=== PATIENT | male | born 1970 | race Asian ===

== ENCOUNTER 2018-01-22 06:01 | Observation (INO) | payer OTHER ==
[2018-01-22] VITALS (13 sets, daily range): BP systolic 105–136; BP diastolic 64–85
[~2018-01-22] VITALS: Ht 180.3 cm; Wt 86.2 kg
[~2018-01-22 06:01] MED LIST: Chloraseptic Spray 20mL Bottle ORAL PRN; Dexamethasone 20mg/5ml IVP ONE; HYDROcodone/Acetamin 10/325 tab ORAL PRN; HYDROmorphone 1mg/ml Carpuject SUBQ PRN; Morphine Sulfate 4mg/ml Inj (IV/IM USE ONLY) IM PRN; ceFAZolin sod 1 GM in NS 55 ML IVPB ONE
[2018-01-22] MEDS ORDERED: Zemuron 50mg/5ml Inj IV ONE (06:10)
[2018-01-22] MEDS ORDERED: LR 1000ml 1,000 ML IVLG SCH (06:24)
--- NOTE | 2018-01-22 06:25 | Anethesia Preoperative Eval ---
Anesthesia Pre-op PMH/ROS General Date of Evaluation: Jan 22, 2018 Time of Evaluation: 07:01 Anesthesiologist: Reji ASA Score: ASA 1 Mallampati Score Class I : Soft palate, uvula, fauces, pillars visible Class II: Soft palate, uvula, fauces visible Class III: Soft palate, base of uvula visible Class IV: Only hard plate visible Mallampati Classification: Class I Surgeon: Michaela Diagnosis: Neck Pain Surgical Procedure: ACDF C4-5,C5-6 Family History: no anesthesia problems Allergies: Uncoded Allergies: NKDA (Adverse Reaction, Unknown, 01/22/18) Medications: see eMAR Patient NPO?: Yes Past Medical History Gastrointestinal/Genitourinary: Reports: GERD Neurologic/Psychiatric: Reports: depression/anxiety Anesthesia Pre-op Phys. Exam Physician Exam Vital Signs Date Time Temp Pulse Resp B/P (MAP) Pulse Ox O2 Delivery O2 Flow Rate FiO2 01/22/18 06:53 98.1 82 18 105/64 (78) 95 01/22/18 06:56 Room Air Constitutional: NAD Neurologic: CN 2-12 intact Cardiovascular: RRR Respiratory: CTA Gastrointestinal: S/NT/ND Airway Exam Mallampati Score: Class I MO: full ROM: limited Teeth: intact Anesthesia Pre-op A/P Risk Assessment & Plan Assessment: ASA 1 Plan: GA, SED, GlideScope Go Status Change Before Surgery: No Pre-Antibiotics Dru Grams Ancef IV Given Within 1 Hr of Incision: Yes Time Given: 07:16 Yoseph Mendoza MD Jan 22, 2018 06:25
[2018-01-22] MEDS ORDERED: Atropine Sulfate 0.4mg/ml inj IVP PRN (06:30)
[2018-01-22] MEDS ORDERED: Meperidine 50mg/ml Inj(FOR RIGORS ONLY) IVP PRN (06:30)
[2018-01-22] MEDS ORDERED: Norco 5mg/325mg tab ORAL PRN (06:30)
[2018-01-22] MEDS ORDERED: Ketorolac 30mg Inj IV PRN ×2 (06:30)
[2018-01-22] MEDS ORDERED: Midazolam 2mg/2ml Inj IVP PRN (06:30)
[2018-01-22] MEDS ORDERED: LORazepam Inj 2mg/ml 1ml IV PRN (06:30)
[2018-01-22] MEDS ORDERED: fentaNYL 100 mcg/2 mL IV PRN (06:30)
[2018-01-22] MEDS ORDERED: oxyCODONE HCL/Acetaminophen 5/325mg ORAL PRN (06:30)
[2018-01-22] MEDS ORDERED: Hydromorphone 0.5mg/0.5ml inj IVP PRN (06:30)
[2018-01-22] MEDS ORDERED: DiphenhydrAMINE 50mg/ml Inj IVP PRN (06:30)
[2018-01-22] MEDS ORDERED: HYDROcodone/Acetamin 7.5/325 tab ORAL PRN (06:30)
[2018-01-22] MEDS ORDERED: Sodium Chloride 10ml vial INJ ONE (06:41)
[2018-01-22] MEDS ORDERED: Lidocaine 1% MPF 10mg/ml 5ml ONE (06:41)
[2018-01-22] MEDS ORDERED: Lidocaine 1% Plain 30 ml INJ ONE ×2 (06:42→08:54)
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
[2018-01-22] MEDS ORDERED: NORCO 10-325 T1 EACH ORAL (06:55)
[2018-01-22] MEDS ORDERED: Bacitracin 50000 Units Vial ONE (06:58)
[2018-01-22] MEDS ORDERED: Thrombin 5000 units TOPIC ONE (06:58)
[2018-01-22] MEDS ORDERED: Gelfoam Size TOPIC ONE (06:58)
[2018-01-22] MEDS ORDERED: Labetalol 5mg/ml 20ml vial IV ONE (07:00)
[2018-01-22] MEDS ORDERED: LR 1000ml ONE (07:00)
[2018-01-22] MEDS ORDERED: NS Irrig 1000ml ONE (07:00)
[2018-01-22] MEDS ORDERED: Propofol 1,000mg/ 100ml btl IV ONE (07:00)
[2018-01-22] MEDS ORDERED: Sterile Water Irrig 1000ml IRRIG ONE (07:00)
--- NOTE | 2018-01-22 07:06 | Pre-Procedure Note/Attestation ---
Pre-Procedure Note/Attestation Complete Prior to Procedure Planned Procedure: not applicable Procedure Narrative: ACDF C4-C5, C5-C6, Anterior Internal Plate Fixation C4-5-6 Indications for Procedure Pre-Operative Diagnosis: Trauma, HNP, radiculopathy, neurological deficit Attestation I attest that I discussed the nature of the procedure; its benefits; risks and complications; and alternatives (and the risks and benefits of such alternatives ), prior to the procedure, with the patient (or the patient's legal admitting representative). I attest that, if there was a reasonable possibility of needing a blood transfusion, the patient (or the patient's legal admitting representative) was given the [place] [employer] standardized written summary, pursuant to the [place] Karena Blood Safety Act ([place] Health and Safety Code # 1645, as amended). I attest that I re-evaluated the patient just prior to the surgery and that there has been no change in the patient's H&P, except as documented below: Melvin Jennings MD Jan 22, 2018 07:06
--- NOTE | 2018-01-22 07:41 | Immediate Post-Op Evaluation ---
Immediate Post-Op Evalulation Immediate Post-Op Evalulation Procedure: ACDF C4-5, C5-6 Date of Evaluation: Jan 22, 2018 Time of Evaluation: 10:47 IV Fluids: 900 LR Blood Products: 0 Estimated Blood Loss: 20 Urinary Output: 0 Blood Pressure Systolic: 117 Blood Pressure Diastolic: 73 Pulse Rate: 79 Respiratory Rate: 16 O2 Sat by Pulse Oximetry: 100 Temperature (Fahrenheit): 97.2 Pain Score (1-10): 2 Nausea: No Vomiting: No Complications 0 Patient Status: awake, reacts, patent, extubated, none Hydration Status: adequate Dru Grams Ancef IV Given Within 1 Hr of Incision: Yes Time Given: 07:16 Yoseph Mendoza MD Jan 22, 2018 07:41
[2018-01-22] MEDS ORDERED: fentaNYL 100 mcg/2 mL IV ONE (08:24)
[2018-01-22] MEDS ORDERED: Acetaminophen (Non formulary) 100 ML IV ONE (08:30)
[2018-01-22] MEDS ORDERED: Neostigmine 1mg/ml 10ml Inj ONE (09:13)
[2018-01-22] MEDS ORDERED: Glycopyrrolate 0.2mg/ml 1ml Vial ONE (09:13)
--- NOTE | 2018-01-22 10:20 | Brief Operative Note ---
Immediate Post Operative Note Operative Note Pre-op Diagnosis: Trauma, HNP, radiculopathy, neurological deficit Procedure: ACDF C4-C5, C5-C6. Anterior Plate C4-5-6 SSEP Xray Magnification Post-op Diagnosis: same as pre-op Findings: consistent w/pre-op dx studies Surgeon: Michaela JUDGE Additional Surgeons: Jorge JUDGE Anesthesiologist: Reji JUDGE Anesthesia: general Specimen: yes Complications: none Condition: stable Fluids: anesthesia Estimated Blood Loss: minimal Drains: none Implant(s) used?: Yes Melvin Jennings MD Jan 22, 2018 10:20
[2018-01-22] MEDS ORDERED: Naloxone 0.4mg/ml Inj IVP PRN (10:30)
--- NOTE | 2018-01-22 11:44 | Diagnostic Imaging Report ---
INDICATION: Pain, intraoperative TECHNIQUE: Intraoperative imaging Fluoroscopy time: 20 seconds Total dose: 0.72443 mGym2 Total number of images: 3 COMPARISON: None FINDINGS: Intraoperative imaging demonstrates surgical tool projected at the anterior aspect of the C5-6 disc. Subsequent images document anterior fusion and placement of disc spacers at C4, C5, C6. IMPRESSION: Intraoperative imaging, as described
[2018-01-22] MEDS ORDERED: D5 1/2NS 1,000 ML IV SCH (15:00)
[2018-01-22] MEDS ORDERED: ceFAZolin sod 1 GM in D5W 55 ML IV SCH (15:00)
--- NOTE | 2018-01-22 16:45 | Operative Note - Dictated ---
DATE OF OPERATION: 01/22/2018 SURGEON: Melvin Jennings, Ph.D, M.D. [employer] SURGEON: Alvaro Patel M.D. ANESTHESIOLOGIST: Yoseph Mendoza M.D. ANESTHESIA: General with intubation. 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 OPERATIVE PROCEDURE: 1. ACDF C4-C5 and C5-C6. 2. Anterior internal plate fixation C4-C5-C6. 3. SSEP monitoring. 4. High-power microscopic dissection. 5. Intraoperative fluoroscopy interpreted by surgeon. ESTIMATED BLOOD LOSS: Minimal. COMPLICATIONS: None. POSTOP CONDITION: Good/stable. SPECIMEN: Disc fragments to pathology. DESCRIPTION OF PROCEDURE: The patient was brought to the operating room and in supine position, general anesthesia with intubation was induced. IV antibiotics, IV Decadron were administered 30 minutes prior to incision time. The patient in the supine position was marked appropriately for the involved intervals utilizing markers and cross-table imaging. Anterior cervical spine was sterilely prepped and draped free in usual sterile fashion. A transverse left incision at the appropriate interval was placed sharply through dermis and epidermis. Electrocautery dissection was carried through the subcutaneous tissue to the level of the platysmas muscle. It was identified, isolated and transected in line with the incision. Blunt dissection was carried through the deep cervical and pretracheal fascia to the midline between the right and left longus colli muscles. Subcutaneous vein was ligated with clips and transected without sequelae. Needle was placed into the disk space. Cross-table imaging was obtained under sterile conditions demonstrating the correct level for the dissection. C5-C6: Longus colli muscles were elevated subperiosteal not exceeding 3 mm in medial lateral extent. Retractors placed. Annulotomy followed diskectomy with pituitary rongeur was not passing through the posterior longitudinal ligament. Dissection of the cartilaginous end plates. Midas Nikita bur dissection under high-power magnification. Interpositional graft to the appropriate dimensions with sizing obtained. Distraction pin was utilized. The patient is stable. Titanium graft containing osteopromotive material with local autograft was tamped into position. AP lateral radiographs were obtained demonstrated excellent alignment and position. Attention was turned to the C4-C5 interval with retractors placed beneath the longus colli muscles bilaterally followed with annulotomy, diskectomy, resection of cartilaginous endplates. Posterior longitudinal ligament resected with foraminotomy right. Ligament resection full transverse right to left. SSEP monitoring stable at all times. After appropriate trial determination and midline the appropriately dimension titanium graft containing osteopromotive material with autograft was tamped into position. All traction on the neck (10 pounds) was removed. Anterior internal plate fixation with compressive fashion was undertaken bilateral C4, C5 and C6. Screws locked into place. AP lateral radiographs were obtained and recorded. Wound irrigated with antibiotic-containing saline. Exploration revealed no obvious excoriation or laceration of vital structures. SSEP monitoring stable at all times. The EMG activity negative. FloSeal applied followed reapproximation of the platysmas muscle followed with reapproximation with subcuticular closure. Transverse surgical strips, sterile bandage maintained in place with tape. The patient was awakened, extubated in the operating room, and transported to postop recovery in good stable condition. Melvin Jennings M.D. DR: Kim JOB#: [id number] CC:
--- NOTE | 2018-01-23 09:54 | 48 Hour Post Anesthesia Eval ---
Post Anesthesia Evaluation Procedure: ACDF C4-5, C5-6 Date of Evaluation: Jan 23, 2018 Airway: patent Nausea: No Vomiting: No Pain Intensity: 0 Hydration Status: adequate Cardiopulmonary Status: at baseline Mental Status/LOC: patient returned to baseline Post-Anesthesia Complications: 0 Follow-up care needed: ready to discharge Quiana Marie MD Jan 23, 2018 09:54
--- NOTE | 2018-01-31 10:16 | Discharge Summary ---
Discharge Summary Discharge Summary _ DATE OF ADMISSION: 01/22/2018 DATE OF DISCHARGE: 01/22/2018 DISCHARGED BY: Dr. Melvin Jennings CONSULTANTS: Dr. Rajendra Arzate BRIEF HOSPITAL COURSE: Patient is a 47-year-old male, who was diagnosed with posttraumatic cervical herniated nucleus polyposis with radiculopathy and neurologic deficits. Patient was admitted on 01/22/2018 and underwent ACDF C4-C5 and C5-C6. He tolerated procedure well. Surgery was uneventful. Post-operatively, patient was admitted for post-op care. He was placed on SCDs for DVT prophylaxis and was encouraged use of incentive spirometer. Patient was given pain management. He was seen by paint stock clerk. Patient was seen by PT. Diet was advanced. Incision was clean, dry and intact. Patient was ambulating well with good pain control and tolerating diet. Patient was eventually cleared for dischage home. 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 OPERATIVE PROCEDURE: 1. ACDF C4-C5 and C5-C6. 2. Anterior internal plate fixation C4-C5-C6. 3. SSEP monitoring. 4. High-power microscopic dissection. 5. Intraoperative fluoroscopy interpreted by surgeon. DISPOSITION: Patient was discharged home. DISCHARGE INSTRUCTIONS: Follow-up in a week. I have been assigned to dictate discharge summary on this account, and I was not involved in the patient's management. Breanna Wooten NP Jan 31, 2018 10:16
== END 2018-01-22 18:20 | disposition home or self-care (01) ==
LOC: SDS 06:01 → EDSTATUS 07:00 → 3E 13:12 → UNDODISOB 18:20
DX: M50.121 Cervical disc disorder at C4-C5 level with radiculopathy (principal); F17.210 Nicotine dependence, cigarettes, uncomplicated; K21.9 Gastro-esophageal reflux disease without esophagitis; F32.9 Major depressive disorder, single episode, unspecified; F41.9 Anxiety disorder, unspecified
CPT/HCPCS: 22551; 22552; 36415; 72040; 76001; 86850; 86900; 86901; 87081; 96360; C1713; G0378; G0379; J0690; J1100; J1170; J1885; J2001; J2175; J2250; J2704; J2710; J3010; 94003; 94150